=== PATIENT | female | born 1970 | race Caucasian/White ===

== ENCOUNTER → 2020-08-23 | Outpatient (CLI) | payer BC ==
--- NOTE | 2020-08-23 13:58 | RADIOLOGY REPORT (SQ) ---
EXAM DESCRIPTION: MRI LUMBAR SPINE WITHOUT IMAGES COMPLETED DATE/TIME: 08/23/2020 1:41 pm REASON FOR STUDY: (M54.16)RADICULOPATHY, LUMBAR REGION M54.16 RADICULOPATHY, LUMBAR REGION COMPARISON: None. TECHNIQUE: Sagittal and Axial imaging includes T1, T2, STIR and gradient echo sequences. Coronal T2/ HASTE imaging. LIMITATIONS: None. FINDINGS: VISUALIZED UPPER ABDOMEN: Limited evaluation. No acute or suspicious findings suggested. SEGMENTATION: No transitional anatomy. The lowest well-developed disc space is labeled L5-S1. ALIGNMENT: Anatomic. VERTEBRAE: Intact. BONE MARROW: Reactive changes are seen predominantly at the lumbosacral junction. No infiltrative pr ocess. DISC SIGNAL: Intervertebral disc desiccation and loss of height are seen at the L2 through S1 levels. POSTERIOR ELEMENTS: Generally intact. No pars defect evident. HARDWARE: None in the spine. CORD AND CONUS: Normal in size and signal intensity. Conus at the appropriate level. SOFT TISSUES: No aortic aneurysm seen. No bulky retroperitoneal adenopathy or mass. No paraspinal mas s or fluid. L1-L2: No significant spinal stenosis or exit foraminal stenosis. L2-L3: Shallow, broad-based posterior disc bulge without significant central canal or neural foramina l stenosis. L3-L4: Shallow, broad-based posterior disc bulge without significant central canal or neural foramina l stenosis. L4-L5: Right paramedian disc extrusion with approximately 12 mm of cranial subligamentous migration w ithout free fragment. Concomitant facet arthropathy results in impingement of the traversing right L 5 nerve root in the lateral recess. Mild right neural foraminal narrowing. The left neural foramen remains patent. L5-S1: Near complete loss of intervertebral disc height with shallow broad-based posterior disc bulge resulting in mild bilateral neural foraminal narrowing. The central canal remains patent. LOWER THORACIC: Incompletely imaged. No stenosis seen. SACRUM: Visualized upper sacrum intact. OTHER: No other significant findings. IMPRESSION: Right paramedian disc extrusion at the L4/5 level appears to impinge the traversing righ t L5 nerve root in the lateral recess. Background of relatively mild multilevel spondylotic changes. TECHNICAL DOCUMENTATION: JOB ID: [id number] 2010 [employer]- All Rights Reserved Reading location - IP/workstation name: [facility]-
== END ==
LOC: RAD 12:58
PROVIDERS: ATTEND Family Medicine
DX: M51.16 Intervertebral disc disorders with radiculopathy, lumbar region (principal)
CPT/HCPCS: 72148